=== PATIENT | female | born 1970 | race Caucasian/White ===

== ENCOUNTER 2021-08-16 22:17 | Observation (INO) ==
[2021-08-17] MEDS ORDERED: MORPHINE 2 MG/1 ML SYRINGE IV STA (00:25)
[2021-08-17] MEDS ORDERED: ALUM/MAG/SIMETH/LIDO VISC 1:1 30 ML BOTTLE PO STA (00:25)
[2021-08-17] MEDS ORDERED: SODIUM CHLORIDE 0.9% 1,000 ML IV STA (00:25)
[2021-08-17] MEDS ORDERED: ASPIRIN 325 MG TABLET PO STA (00:25)
[2021-08-17] MEDS ORDERED: ONDANSETRON 4 MG/2 ML VIAL IV STA (00:25)
[2021-08-17 01:56] LABS: Basophils % 0.5 % (0.0-0.8); Eosinophils % 0.2 % (0.00-10.9); Hematocrit 42.4 VOL% (35.7-47.0); Immature Granulocytes % 0.4 %; Immature Granulocytes Absolute 0.03 #; Lymphocytes # 0.9 10*3/uL (1.4-4.0); Lymphocytes % 10.7 % (21.3-54.2); Mean Corpuscular Volume 90.6 FL (87-102); Mean Platelet Volume 9.9 FL (9.6-12.0); Monocytes % 10.8 % (1.7-12.7); Neutrophils % 77.4 % (38.7-73.9); Platelet Count 232 T/CUMM (130-400); Red Blood Count 4.68 MC/CUMM (3.8-5.5); Red Cell Distribution Width 13.7 % (9.3-17.3); White Blood Count 8.1 T/CUMM (4-12)
[2021-08-17 05:01] LABS: Albumin 3.7 G/DL (3.4-5.0); Bilirubin,Total 1.4 MG/DL (0.20-1.00); Calcium 8.7 MG/DL (8.5-10.1); Osmolality,Calculated 274.8 MOS/KG (273-304); Potassium 3.8 MMOL/L (3.5-5.1); Total Protein 7.4 G/DL (6.4-8.2)
[2021-08-17] MEDS ORDERED: ACETAMINOPHEN 325 MG TABLET PO PRN (06:32)
[2021-08-17] MEDS ORDERED: HYDROmorphone 2 MG/1 ML VIAL IV PRN (06:32)
[2021-08-17] MEDS ORDERED: ONDANSETRON 4 MG/2 ML VIAL IV PRN ×2 (06:32→13:26)
[2021-08-17] MEDS: SODIUM CHLORIDE 0.9% 1,000 ML IV SCH ×3 (06:42→23:13)
[2021-08-17] MEDS: LEVOFLOXACIN INJ 750 MG/150 ML PREMIX IV SCH (07:12)
[2021-08-17 08:07] LABS: Albumin 3.3 G/DL (3.4-5.0); Bilirubin,Total 1.2 MG/DL (0.20-1.00); Calcium 8.3 MG/DL (8.5-10.1); Osmolality,Calculated 273.8 MOS/KG (273-304); Potassium 3.6 MMOL/L (3.5-5.1); Total Protein 6.7 G/DL (6.4-8.2)
[2021-08-17] MEDS: PANTOPRAZOLE 40 MG VIAL IV SCH (08:59)
[2021-08-17] MEDS ORDERED: propofoL 200 MG/20 ML VIAL IV ONE (10:40)
[2021-08-17] MEDS ORDERED: LIDOCAINE 2% 5 ML VIAL ONE (10:40)
[2021-08-17] MEDS ORDERED: SEVOFLURANE 1 UNIT/15 MINUTE INH ONE (10:40)
[2021-08-17] MEDS ORDERED: ONDANSETRON 4 MG/2 ML VIAL ONE (10:40)
[2021-08-17] MEDS ORDERED: MIDAZOLAM 2 MG/2 ML VIAL ONE (10:40)
[2021-08-17] MEDS ORDERED: ROCURONIUM 50 MG/5 ML VIAL IV ONE (10:40)
[2021-08-17] MEDS ORDERED: fentaNYL 100 MCG/2 ML VIAL ONE ×3 (10:40→12:31)
[2021-08-17] MEDS ORDERED: LACTATED RINGERS 1,000 ML IV SCH (12:00)
[2021-08-17] MEDS ORDERED: TISSUE ADHESIVE 1 EACH APPLICATOR TOP ONE (12:01)
[2021-08-17] MEDS ORDERED: DEXAMETHASONE 4 MG/1 ML VIAL ONE (12:03)
[2021-08-17] MEDS ORDERED: ACETAMINOPHEN INJ 1,000 MG/100 ML VIAL IV ONE (12:04)
[2021-08-17] MEDS ORDERED: GLUCAGON 1 MG VIAL ONE (12:16)
[2021-08-17] MEDS ORDERED: LACTATED RINGERS 1,000 ML IV ONE (12:22)
[2021-08-17] MEDS: HYDROmorphone 2 MG/1 ML VIAL IV PRN ×2 (13:22→13:30)
[2021-08-17] MEDS ORDERED: ENOXAPARIN 40 MG/0.4 ML SYRINGE SUBCUT SCH (23:30)
[2021-08-18] MEDS: LEVOFLOXACIN INJ 750 MG/150 ML PREMIX IV SCH (05:37)
[2021-08-18] MEDS: SODIUM CHLORIDE 0.9% 1,000 ML IV SCH ×2 (06:15→08:36)
[2021-08-18 06:35] LABS: Basophils % 0.4 % (0.0-0.8); Eosinophils % 0.2 % (0.00-10.9); Hematocrit 37.6 VOL% (35.7-47.0); Hemoglobin 12.1 GM/DL (12.0-16.0); Immature Granulocytes % 0.2 %; Immature Granulocytes Absolute 0.01 #; Lymphocytes # 1.3 10*3/uL (1.4-4.0); Mean Corpuscular HGB Conc 32.2 GM/DL (32-36); Mean Corpuscular Volume 92.2 FL (87-102); Mean Platelet Volume 10.1 FL (9.6-12.0); Monocytes % 11.6 % (1.7-12.7); Neutrophils % 63.6 % (38.7-73.9); Platelet Count 185 T/CUMM (130-400); Red Blood Count 4.08 MC/CUMM (3.8-5.5); Red Cell Distribution Width 13.9 % (9.3-17.3); White Blood Count 5.6 T/CUMM (4-12)
[2021-08-18 07:10] LABS: Bilirubin,Total 0.8 MG/DL (0.20-1.00); Calcium 8.4 MG/DL (8.5-10.1); Osmolality,Calculated 272.7 MOS/KG (273-304); Potassium 3.7 MMOL/L (3.5-5.1); Total Protein 6.1 G/DL (6.4-8.2)
[2021-08-18] MEDS: PANTOPRAZOLE 40 MG VIAL IV SCH (08:36)
[2021-08-18 12:12] VITALS: BP 124/64
== END 2021-08-18 14:24 | disposition home or self-care (01) ==
LOC: N.EDINP 22:17 → N.ED 22:17 → N.EDINP 08-17 06:24 → N.5E 08-17 06:30
PROVIDERS: ADMIT Surgery; ATTEND Surgery
PROC: LAPCHOL (2021-08-17 11:35)